=== PATIENT | male | born 1955 | race Caucasian/White ===

== ENCOUNTER → 2018-04-01 | Outpatient (CLI) | payer OTHER ==
[2018-04-01] VITALS (11 sets, daily range): BP systolic 102–128; BP diastolic 59–94
[~2018-04-01] VITALS: Ht 193 cm; Wt 111.1 kg
[~2018-04-01] MED LIST: ATENOLOL 50MG T50 M1 PO; EFFEXOR 5050 MG/1 T1 PO; HYDROCHLOROTHIA25 M2 PO; KLOR-CON 1010 MEQ PO; LYRICA100 MG PO; NITROGLYCERIN0.4 MG SUBLING; PRILOSEC 20 MG20 MG; THERA M PLUS T1 EAC2 PO; XARELTO20 MG PO; ZOCOR20 MG PO
[2018-04-01 08:01] LABS: HEMATOCRIT 47.2 % (42.0-52.0); HEMOGLOBIN 15.6 gm/dL (14.0-18.0); MCH 30.9 pg (26.0-34.0); MCV 93.5 fL (80.0-100.0); MPV 8.8 fl. (7.2-11.1); RBC 5.04 mil/uL (4.50-6.00); WBC 6.1 thou/uL (4.0-11.0)
[2018-04-01 08:10] LABS: ANION GAP 1 mmol/L (7-16); BUN 19 mg/dL (7-18); CALCIUM 7.8 mg/dL (8.5-10.1); CHLORIDE 107 mmol/L (98-107); CO2 32 mmol/L (21-32); GLUCOSE 97 mg/dL (70-99); POTASSIUM 3.2 mmol/L (3.5-5.1); SODIUM 140 mmol/L (136-145)
[2018-04-01 08:11] LABS: APTT 25.1 Seconds (25.0-31.3); PROTIME 9.8 Seconds (9.20-11.50); SERUM ASSESSMENT Clear
[2018-04-01 08:14] LABS: ALBUMIN 2.8 g/dL (3.4-5.0); ALKALINE PHOSPHATASE 55 U/L (46-116); CHOLESTEROL 150 mg/dL (<200); HDL CHOLESTEROL 59 mg/dL (>40); LDL CHOLESTEROL 82 mg/dL (<100); SGOT 26 U/L (15-37); SGPT 29 U/L (30-65); TC:HDL 2.5 Ratio (Not establshd); TOTAL BILIRUBIN 0.5 mg/dL (<0.1-1.0); TOTAL PROTEIN 5.8 g/dL (6.4-8.2); TRIGLYCERIDE 46 mg/dL (<150); VLDL 9 mg/dL (<40)
--- NOTE | 2018-04-01 11:44 | EKG ---
[place] [address] ELECTROCARDIOGRAM REPORT Name: RANI ADAMS Room: [facility]#: [id number] Admission: 04/01/18 Attend Phys: Eduardo Eden MD Discharge: Date of : 59 Report #: [id number] THIS REPORT FOR: //name// [facility] Test Date: 2018-04-01 Test Time: 09:12:50 Pat Name: RANI ADAMS Department: Room: Gender: Automobile Assembly Supervisor: : 1955 Requested By: Eduardo Eden Order Number: [id number] Reading MD: Eduardo Eden Measurements Intervals [place] Rate: 58 P: [place]: QRS: 16 QRSD: 90 T: 30 QT: 439 QTc: 432 Interpretive Statements Atrial fibrillation No previous ECG available for comparison Electronically Signed On 04-01-2018 11:43:54 CDT by Eduardo Eden [email or web address] <ELECTRONICALLY SIGNED> By: Eduardo Eden MD, [facility] 04/01/18 1143 0912 1 Eduardo Eden MD, FAC /EPI
--- NOTE | 2018-04-01 16:24 | CARD ---
[address] [address] CARDIAC CATH REPORT Name: RANI ADAMS Biju [id number] Admission: 04/01/18 Attend Phys: Eduardo Eden MD Discharge: Date of : 59 Report #: [id number] THIS REPORT FOR: //name// APPROVED REPORT Study performed: 04/01/2018 09:09:14 Patient Details Patient Status: Out-Patient Room #: The patient is a 63 year-old male Event Personnel Eduardo Eden Pathology Laboratory Director, Saranya Riley, Ian Stone (Biju) Shar Nicole Elena RN Financial Reporting Manager Procedures Performed Art Access - R radial artery , Left Heart CatheterizationLeft Heart Cath w/LT [facility] [id number] LHCLV , Selective Right and Left Coronary Angiography Procedure Narrative The patient was brought electively to the Cardiac Catheterization Laboratory and was prepped and draped in a sterile manner. The right wrist was infiltrated with 2% Lidocaine subcutaneous anesthesia. A Slender Glidesheath sheath was inserted into the right radial artery. Coronary angiography was performed using coronary diagnostic catheters. The right coronary system was accessed and visualized with a Watson 6fr catheter. The left coronary system was accessed and visualized with a DCR: [place] 4.0 6fr catheter. The left ventricle was accessed and visualized with a PC: Pig 6fr catheter. Left ventricular/Aortic Valve gradient assessed via catheter pullback. Left ventriculogram was performed in DICK projection. Closure device was deployed with a Fr Vasc-Band Lng 27cm. Intraoperative Conscious Sedation Sedation start time: 09:55 Case end Time: 10:32 Fentanyl 50 mcg Versed 2 mg Fluoro Time: 19.5 minutes Dose: DAP [id number] cGycm2 2602.73 mGy Contrast Type and Amount: Omnipaque 220 ml Coronary Angiography The patient's coronary anatomy [place] [address] CARDIAC CATH REPORT Name: RANI ADAMS Room: [facility]#: [id number] Admission: 04/01/18 Attend Phys: Eduardo Eden MD Discharge: Date of : 59 Report #: [id number] Diagnostic Cath Left Main normal LAD mid body 30%, smooth,at apex diffuse 20% irregularities Diagonal 1 proximal 50-60% Circumflex large vessel normal OM1 normal OM2 normal Right Coronary mild luminal irreg. , <20% mid body, sluggish flow R PDA normal RPLV normal Left Ventriculography Left Ventriculography was not performed. Ejection Fraction was >55% based off patient's Nuclear Cardiac Stress Test. Hemodynamics The aortic pressure is 109/81 mmHg with a mean of mmHg. The left ventricular pressure is 99/-1 mmHg with a mean of mmHg. The left ventricular end diastolic pressure is 7 mmHg. There was no gradient across the aortic valve upon pullback. Pullback from the left ventricle to the aorta revealed no gradient across the aortic valve. Conclusion 1. mild atherosclerotic CAD 2. consider treatment for spasm Recommendations Aggressive Medical Therapy prn nitrates <ELECTRONICALLY SIGNED> By: Eduardo Eden MD, FACC 04/01/18 1624 1624 1624Eduardo Eden MD, FACC /INF
== END | disposition home or self-care (01) ==
LOC: M.CL 07:29
PROVIDERS: Internal Medicine Cardiovascular Disease
DX: I25.10 Atherosclerotic heart disease of native coronary artery without angina pectoris (principal); I10 Essential (primary) hypertension; N40.0 Benign prostatic hyperplasia without lower urinary tract symptoms; E78.00 Pure hypercholesterolemia, unspecified; E78.5 Hyperlipidemia, unspecified; F32.9 Major depressive disorder, single episode, unspecified; K21.9 Gastro-esophageal reflux disease without esophagitis; E66.09 Other obesity due to excess calories; Z98.890 Other specified postprocedural states; Z79.899 Other long term (current) drug therapy; Z79.01 Long term (current) use of anticoagulants